=== PATIENT | female | born 1950 | race Caucasian/White ===

== ENCOUNTER → 2018-12-06 09:07 | Outpatient (CLI) | payer MEDICARE, OTHER, SELFPAY ==
--- NOTE | 2018-12-06 | DI.MRI.S_ITS ---
PROCEDURE: MR KNEE RT WO CON INDICATIONS: BILATERAL KNEE OSTEOARTHRITIS TECHNIQUE: Noncontrast sagittal PD fast spin echo and T2 fast spin echo with fat saturation, sagittal 3-D FLASH with fat saturation; coronal T1 spin echo and PD fast spin echo with fat saturation, and axial PD fast spin echo with fat saturation through the knee. COMPARISON: [facility] [place], CR, XR KNEE ARTHRITIC SERIES BI, 11/15/2018, 14:23. FINDINGS: Image quality: Degraded by body habitus and motion artifact. Menisci: There is medial extrusion of the medial meniscus, which demonstrates amorphous high signal intensity within the anterior horn, body, and posterior horn, demonstrating superior and inferior articular surface extension. Lateral meniscus demonstrates no definite tear. Cruciate ligaments: The anterior and posterior cruciate ligaments appear intact. Medial structures: The medial collateral ligament appears intact. Visualized portions of the pes anserinus tendons appear normal. No abnormal bursal fluid. Lateral structures: The lateral collateral ligament, long and short heads of the biceps femoris tendon appear intact. The popliteus tendon appears normal. Iliotibial band appears normal. Anterior structures: The quadriceps and patellar tendons appear intact. Patellar alignment is normal. No femoral trochlear dysplasia or ventral trochlear prominence. No edema in the infrapatellar fat pad. Bones and cartilage: No bone marrow contusions or fractures. Mild diffuse subchondral degenerative marrow edema within the weightbearing aspect of the medial femoral condyle and medial tibial plateau. Severe tricompartmental periarticular osteophyte formation with hook osteophytes. Severe diffuse articular cartilage loss overlies the weightbearing aspects of the medial femoral condyle and medial tibial plateau. Moderate diffuse articular cartilage loss overlies the medial and lateral patellar facets. Mild diffuse or due to cartilage loss overlies the weightbearing aspects of the lateral femoral condyle and lateral tibial plateau. Joint space: There is a small knee joint effusion and a trace Alvarez's cyst. Multiple intra-articular loose bodies are present, largest of which is at the posterior aspect of the medial compartment measuring 11 mm. 17 mm ganglion cyst at the posterior aspect of the intercondylar notch. Normal appearing synovial plicae are incidentally noted. IMPRESSION: 1. Tricompartmental osteoarthritis with associated articular cartilage loss. 2. Knee joint effusion and intra-articular loose bodies. 3. Degenerative tearing of the medial meniscus. Dictated by: Maryse Atkinson M.D. on 12/06/2018 at 14:05 Approved by: Maryse Atkinson M.D. on 12/06/2018 at 14:11
--- NOTE | 2018-12-06 | DI.MRI.S_ITS ---
PROCEDURE: MR KNEE LT WO CON INDICATIONS: BILATERAL KNEE OSTEOARTHRITIS TECHNIQUE: Noncontrast sagittal PD fast spin echo and T2 fast spin echo with fat saturation, sagittal 3-D FLASH with fat saturation; coronal T1 spin echo and PD fast spin echo with fat saturation, and axial PD fast spin echo with fat saturation through the knee. COMPARISON: [facility] [place], CR, XR KNEE ARTHRITIC SERIES BI, 11/15/2018, 14:23. FINDINGS: Image quality: Degraded by motion artifact and body habitus Menisci: Medial extrusion of the medial meniscus is present. There is probable degenerative tearing of the posterior horn medial meniscus. There is suboptimal evaluation of the medial meniscus. Lateral meniscus is suboptimally visualized as well, but grossly unremarkable as visualized. Cruciate ligaments: The anterior and posterior cruciate ligaments appear intact. Medial structures: The medial collateral ligament appears intact. Visualized portions of the pes anserinus tendons appear normal. Mild T2 signal elevation adjacent to the tibial insertion of the semimembranosus. No abnormal bursal fluid. Lateral structures: The lateral collateral ligament, long and short heads of the biceps femoris tendon appear intact. The popliteus tendon appears normal. Iliotibial band appears normal. Anterior structures: The quadriceps and patellar tendons appear intact. Patellar alignment is normal. No femoral trochlear dysplasia or ventral trochlear prominence. No edema in the infrapatellar fat pad. Bones and cartilage: No bone marrow contusions or fractures. There is severe tricompartmental periarticular osteophyte formation. There is severe diffuse articular cartilage loss overlying the weightbearing aspects of the medial femoral condyle and medial tibial plateau. Moderate to cartilage loss overlies the patellar apex and medial facet. The cartilage of the medial and lateral femorotibial compartments, as well as the patellofemoral compartment, appears normal in thickness. Joint space: There is a small knee joint effusion, a small Alvarez's cyst, and a small ganglion cyst along the popliteus. Multiple intra-articular loose bodies are present, largest of which is in the anterior central compartment measuring 11 mm.Normal appearing synovial plicae are incidentally noted. IMPRESSION: 1. Tricompartmental osteoarthritis with associated articular cartilage loss. 2. Medial meniscal tearing. 3. Knee joint effusion and Alvarez's cyst with intra-articular loose bodies. 4. Insertional tendinitis of the semimembranosus. Dictated by: Marsye Atkinson M.D. on 12/06/2018 at 13:29 Approved by: Maryse Atkinson M.D. on 12/06/2018 at 13:34
== END ==
PROVIDERS: Visit Provider Orthopaedic Surgery
DX: M17.0 Bilateral primary osteoarthritis of knee (principal); S83.242A Other tear of medial meniscus, current injury, left knee, initial encounter; M23.203 Derangement of unspecified medial meniscus due to old tear or injury, right knee; M25.462 Effusion, left knee; M25.461 Effusion, right knee; M71.22 Synovial cyst of popliteal space [Baker], left knee
CPT/HCPCS: 73721

== ENCOUNTER 2019-01-03 07:27 | Inpatient (IN) | payer MEDICARE, OTHER, SELFPAY ==
[2018-12-20 13:49] VITALS: BMI 33.8
[2019-01-03] VITALS (11 sets, daily range): BP systolic 99–160; BP diastolic 62–89; PULSE 16–86; RESP 14–20; TEMP 36.2–36.7; O2SAT 94–100; BMI 33.3
--- NOTE | 2019-01-03 07:40 | PM.PREOP ---
Pre-operative Note Interval Note History & Physical reviewed/Exam performed by Physician: Yes Changes to H&P: No
--- NOTE | 2019-01-03 08:04 | PM.OP.1 ---
Operative Date/Time/Diagnoses Date of procedure: 01/03/19 Time of procedure: 13:00 Pre-op diagnosis: Bilateral knee osteoarthritis Post-op diagnosis: same Procedure & Clinicians Procedure: Bilateral total knee arthroplasty Same procedure as scheduled: Yes Indications: The patient presents today for total knee arthroplasty after failure of conservative treatment. The nature of the procedure including the risks and benefits, alternatives, postoperative course and expected outcome were discussed and all questions answered. Consent was obtained. Operative site confirmed and marked. Surgeon: aGry Trevino Garnishment Specialist: Major Hutson Anesthesia Type: General, Spinal and Local Operative Notes Findings: Osteoarthritis with severe varus deformity and moderate flexion contracture. Closure Type: primary Specimen(s): none sent Prosthetic devices, grafts, tissues, transplants, or devices: [employer] BCS: RIGHT: 5 femoral component, 4 tibial component, 10 mm BCS polyethylene tray and 32 x 7.5 mm round patella. [employer] BCS: LEFT: 5 femoral component, 4 tibial component, 11 mm BCS polyethylene tray and 32 x 7.5 mm round patella Applied: implant(s) Estimated Blood Loss (mL): 100 Blood products transfused: none Procedure in detail: The patient was taken to the operative suite and placed under general and spinal anesthesia. The patient was given prophylactic antibiotics prior to surgery. The patient was also given tranexamic acid, 1 g, just prior to surgery for postoperative hemostasis. The lateral knee was prepped and the joint injected with 20 mL of 1% Lidocaine with epinephrine. The knee was then prepped and draped in usual sterile fashion. The left leg was exsanguinated with an Esmarch dressing and the tourniquet raised to 250 torr. A 15 cm anterior incision was made. Next a medial trivector arthrotomy was made. The extensor mechanism was marked to ensure accurate repair. Initial exposing dissection was carried out medially and laterally. The knee was then extended and the patellar thickness was measured and a cut made removing approximately 7-8 mm of bone with a goal of restoring normal patellar thickness. The patella was then sized and drilled. Some excess lateral bone was excised and the patellofemoral ligament released. The tourniquet was then released. The knee was then flexed and the [employer] femoral guide was placed. The anterior pins were placed and the distal rotation holes drilled. The distal cutting guide was placed and the templated distal femoral cut was made. The templating cutting block was then placed and the anterior, posterior and chamfer cuts made. The [employer] tibial guide was placed and the alignment checked along the axis of the proximal tibial with a esteban. The proximal tibial cut was then made with an oscillating saw. All meniscus and bony debris was then removed. Flexion extension gaps were checked. No specific balancing was required other than routine exposure and removal of osteophytes. The soft tissues were then injected with a combination of 20 mL of half percent Marcaine with epinephrine and 20 mL of Exparel. The trial components were then placed. The knee went into full extension and flexion beyond 120?. There was excellent medial- lateral balance throughout motion. Patellar tracking was excellent. The trial components were removed and size is confirmed for the final implants. The knee was then exsanguinated with an Esmarch dressing and the tourniquet reapplied for cementing. The knee was cleansed with Pulsavac irrigation and dried. The final components were cemented in with high viscosity vacuum mixed bone cement with antibiotics. The knee was held in extension and the patellar clamp until the cement had adequately cured. The knee was then irrigated with dilute Betadine solution. The extensor mechanism was closed with 5 interrupted #1 Vicryl sutures in 90 degrees of flexion. The joint was then injected with a combination of 1 g of tranexamic acid and 20 mL of quarter percent Marcaine with epinephrine. The subcutaneous tissue was closed with 2-0 Vicryl. The skin was closed with yousif and surgical adhesive. An Aquacel dressing and Choco wrap were then applied. The identical procedure was then carried out on the right side. Overall balancing and patellar tracking was virtually identical except a 10 mm polyethylene spacer was utilized and very mild release of the MCL with an 18 gauge needle was utilized. Tourniquet time was 28 minutes on the left side and 35 minutes on the right side. Complications: none Condition: stable Disposition: PACU Plan for aftercare: [facility] protocol for total knee arthroplasty.
[2019-01-03] MEDS: CELECOXIB 200 MG CAPSULE PO (08:14)
[2019-01-03] MEDS: ACETAMINOPHEN 325 MG TABLET 975 MG PO ×2 (08:14→17:33)
[2019-01-03] MEDS: LACTATED RINGERS 1,000 ML 42 ML IV ×2 (08:15→12:40)
[2019-01-03] MEDS: PREGABALIN 75 MG CAPSULE PO (08:15)
--- NOTE | 2019-01-03 09:30 | DI.RAD.S_ITS ---
PROCEDURE: XR KNEE RT 1TO2V INDICATIONS: TKA TECHNIQUE: 2 view(s) of the knee acquired. COMPARISON: None. FINDINGS: Bones: Patient is status post right knee joint arthroplasty. Hardware components are in expected positions. Visualized bony structures are intact. Soft tissues: Overlying postoperative changes are noted. IMPRESSION: Normal alignment after right total knee arthroplasty. Dictated by: Mansoor Rios M.D. on 01/03/2019 at 14:53 Approved by: Mansoor Rios M.D. on 01/03/2019 at 14:53
--- NOTE | 2019-01-03 09:30 | DI.RAD.S_ITS ---
PROCEDURE: XR KNEE LT 1TO2V INDICATIONS: TKA TECHNIQUE: A 2 view(s) of the knee acquired. COMPARISON: None. FINDINGS: Bones: Patient is status post knee joint arthroplasty. Hardware components are in expected positions. Visualized bony structures are intact. Soft tissues: Overlying postoperative changes are noted. IMPRESSION: Normal alignment after left total knee arthroplasty. Dictated by: Mansoor Rios M.D. on 01/03/2019 at 14:52 Approved by: Mansoor Rios M.D. on 01/03/2019 at 14:53
[2019-01-03] MEDS: CEFAZOLIN 2 GM/100 ML FROZ.PIGGY IV ×2 (10:18→17:36)
--- NOTE | 2019-01-03 11:17 | SUR.OPER ---
Supine on padded OR bed. Pillow under head, arms secured on padded armboards <90 degree abduction. Safety belt across torso. Non-operative leg secured with tape over blanket over lower leg. Operative leg secured in Dante positioner. Foam padded brace at thigh of operative leg.
[2019-01-03] MEDS: BUPIVACAINE LIPOSOME 266 MG/20 ML VIAL 532 MG INJ (11:40)
[2019-01-03] MEDS: BUPIVACAINE 0.25% W/ EPI (PF) 20 ML, TRANEXAMIC ACID 1,000 MG, SODIUM CHLORIDE 0.9% 10 ML INJ ×2 (12:17→12:18)
[2019-01-03] MEDS: POVIDONE-IODINE 15 ML, SODIUM CHLORIDE 0.9% 250 ML TOP (12:19)
[2019-01-03] MEDS: BUPIVACAINE 0.25% W/ EPI 30 ML VIAL 120 ML INJ (12:20)
[2019-01-03] MEDS: LIDOCAINE 1% W/EPI INJ 40 ML INJ (12:20)
[2019-01-03] MEDS: fentaNYL 100 MCG/2 ML INJ 50 MCG IV ×2 (13:27→13:43)
[2019-01-03] MEDS: LACTATED RINGERS 1,000 ML 125 ML IV ×2 (14:30→21:15)
--- NOTE | 2019-01-03 15:04 | PC.NURSE ---
Day Shift- Report rec'd from ALEJANDRA Canales in PACU at 1355. Pt arrived to unit room 219 at 1405 via bed. Oriented to call light, bed alarm use. O2 sat 96% on RA, pt slightly drowsy, able to hold a conversation. Bilateral knee aquacell dressings CDI with juve wrap in place and ice pack. MIXING PAN TENDER+, PPP, feet warm to touch. Pt's Varinder arrived at bedside.
--- NOTE | 2019-01-03 15:35 | PT.IIE ---
Current Diagnoses Bilateral primary osteoarthritis of knee (01/03/19) Surgery Performed Operation Date: 01/03/19 09:30 Actual Procedures p Total Knee Arthroplasty(Bilateral) - Gary Trevino MD Surgical History (Last Updated 12/20/18 @ 14:13 by Henrietta Peguero, RN) No history of previous surgery (Acute) Medical History (Last Updated 12/20/18 @ 14:13 by Henrietta Peguero RN) ADD (attention deficit disorder) (Acute) Anxiety (Acute) Bunion, right foot (Acute) Deaf (Acute ~1982) HLD (hyperlipidemia) (Acute) Osteoarthritis (Acute) Septicemia (Acute ~1982) Physical Therapy Inpatient Evaluation/Re-Eval M1 PT/OT-IP Prior Functional Status Start: 01/03/19 16:15 Freq: NEEDED Status: Active Protocol: Document 01/03/19 15:35 AB (Rec: 01/03/19 16:33 AB [id number]) Medical Review Prior Functional Status Medical History Reviewed Yes Communication able to make needs known Mobility and Gait stated that she is independent with all mobilities and ambulation without AD Social History Household Members spouse Living Arrangements House Number of Floors (Floors) 3 or More Floors Number of Stairs To Enter/Railing? pt lives in a split level house but will be staying on the main level has 5 steps with L rail ascending to enter Home Environment Standard Height Toilet Walk in Shower Built-In Shower Seat Home Equipment Front Wheel Walker Straight Cane Raised Toilet Seat Without Armrests Hand Held Shower Grab Bars In Shower Employment Status Retired M2 PT-IP Current Condition Start: 01/03/19 16:15 Freq: NEEDED Status: Active Protocol: Document 01/03/19 15:35 AB (Rec: 01/03/19 16:33 AB [id number]) Physical Therapy Current Condition Current Condition Evaluation Date 01/03/19 Treatment Diagnosis s/p bilateral TKA; difficulty in walking Onset Date 01/03/19 Weight Bearing Status Weight Bearing Status Weight Bear as Tolerated M3 PT-IP Subjective Start: 01/03/19 16:15 Freq: NEEDED Status: Active Protocol: Document 01/03/19 15:35 AB (Rec: 01/03/19 16:33 AB [id number]) Subjective Physical Therapy Visit Type Type Initial Evaluation Visit Start Time 15:35 Visit Stop Time 16:12 Total Visit Minutes 37 Number of C.O.D. AUDIT CLERK Visits 0 Physical Therapy Visit Comments Patient Comments c/o nausea but agreed to get up Therapy Pain Assessment Pain When Pain Assessed At Rest Pain Present Pain Present Pain Reported Location Right Knee Intensity 2 Scale Used Numeric (1 - 10) Pain Management Techniques Apply Cold Re-positioning Timing of Activity with Medications Left Knee Intensity 1 Scale Used Numeric (1 - 10) Pain Management Techniques Apply Cold Re-positioning Timing of Activity with Medications M4 PT-IP Mobility and Gait Start: 01/03/19 16:15 Freq: NEEDED Status: Active Protocol: Document 01/03/19 15:35 AB (Rec: 01/03/19 16:33 AB [id number]) PT-Bed Mobility Assessment Supine to Sit Supine to Sit Standby Assistance Sit to Supine Sit to Supine Total Assistance PT-Transfer Assessment Sit to and From Stand Sit to and from Stand Maximum Assistance 1 Person Assistance Use of Upper Extremities Comments Mobility Comments supine BP: 129/89 pt completed supine to sit SBA. BP sittin/87 . attempted sit to stand but pt unable. attempted again and completed with max A and max cues. pt was able to stand max A for ~ 7 sec and became unresponsive and has to be assisted to sit down and lay back in bed requiring total A. alerted the nurse. BP in supine: 99/80. nurse checked pt. positioned pt in bed. call light and table placed within reach. PT-Balance Assessment Sitting Balance and Reactions Static Sitting Balance Ability Good Dynamic Sitting Balance Ability Good Standing Balance and Reactions Static Standing Balance Ability Poor Dynamic Standing Balance Ability Poor Device Used FWW M5 PT-IP Objective Assessments Start: 01/03/19 16:15 Freq: NEEDED Status: Active Protocol: Document 01/03/19 15:35 AB (Rec: 01/03/19 16:33 AB [id number]) Orientation Orientation/Cognition Level of Alertness Alert Orientation Name Place Situation Language Function Ability No Deficits Noted Safety Awareness Understands Safety Issues Memory Description Short Term Impaired Gross Range of Motion Lower Extremity ROM Assessment Bilaterally Impaired Impairments R knee flexion: ~ 70 deg L knee flexion: ~ 90 deg Strength Lower Extremity Strength Assessment Bilaterally Impaired Knee 3+/5 Coordination Assessment Gross Coordination Gross Coordination WNL Sensation Assessment Sensation Gross Sensation Right LE Impaired Left LE Impaired Light Touch Impaired Proprioception (Position) Impaired Comments Sensation Comments decrease sensation on BLE Muscle Tone Muscle Tone WNL Yes M6 PT-IP Treatment Start: 01/03/19 16:15 Freq: NEEDED Status: Active Protocol: Document 01/03/19 15:35 AB (Rec: 01/03/19 16:33 AB [id number]) Physical Therapy Treatment Exercises Exercises Heel Slides Education Education Provided Precautions Weight Bearing Status Post-Op Packet Safety M7 PT-IP Assessment and Plan Start: 01/03/19 16:15 Freq: NEEDED Status: Active Protocol: Document 01/03/19 15:35 AB (Rec: 01/03/19 16:33 AB [id number]) PT Summary Assessment and Plan Potential Rehabilitation Potential Fair Status of Condition at Evaluation Evolving Summary Impairments Pain ROM Strength Balance Coordination Sensation Bed Mobility Transfers Gait Activity Tolerance Assessment Summary pt requiring max A with sit to stand and unable to tolerate much activity at this time. will require further assessment to determine d/c plan. Goals Bed Mobility Goal Standby Assistance Transfer Goal Standby Assistance Front Wheeled Walker Gait Goal Standby Assistance Front Wheel Walker Gait Distance 150 Other Goals up/down 5 steps using L rail ascending SBA Days to Meet Goals 5 Frequency of Treatment Frequency Of Treatment Twice a Day Treatment Plan Physical Therapy Treatment Plan Bed Mobility Training Transfer Training Gait Training Therapeutic Exercise Balance Retraining Post Op Education Discharge Planning Hot or Cold Pack Neuromuscular Re-ed Coordination Retraining Manual Therapy Other Recommendations and Next Treatment transfers, ambulation Focus Recommendations To Nursing Amount of Assist Needed PT/OT Assist Only Discharge Recommendations PT Discharge Recommendations Home with 04/04 Assist SNF Rehab Other Discharge Recommendations SNF vs home : depending on progress
[2019-01-03] MEDS: ONDANSETRON 4 MG/2 ML INJ IV (15:52)
[2019-01-03] MEDS: OXYCODONE IR 5 MG TABLET PO ×2 (18:16→21:15)
[2019-01-03] MEDS: ASPIRIN EC 81 MG TABLET PO (21:15)
[2019-01-04] VITALS (11 sets, daily range): BP systolic 77–153; BP diastolic 27–85; PULSE 79–121; RESP 12–20; TEMP 36.3–37.1; O2SAT 94–98
[2019-01-04] MEDS: OXYCODONE IR 5 MG TABLET PO ×5 (00:14→21:17)
[2019-01-04] MEDS: ACETAMINOPHEN 325 MG TABLET 975 MG PO ×4 (00:14→21:21)
[2019-01-04] MEDS: CEFAZOLIN 2 GM/100 ML FROZ.PIGGY IV (02:20)
[2019-01-04 05:57] LABS: Hematocrit 32.3 % (36-46); Hemoglobin 11.6 g/dL (12.0-16.0)
[2019-01-04] MEDS: MELOXICAM 7.5 MG TABLET 15 MG PO (08:11)
[2019-01-04] MEDS: ASPIRIN EC 81 MG TABLET PO ×2 (08:13→21:22)
--- NOTE | 2019-01-04 08:46 | CM.DANOTE ---
Discharge Planning/Care Management DCP: assessment: case received, EMR reviewed, discussed with ortho PA Soniya Lynn and met with pt. Introduced self and role. Pt is a 68 year old female who admitted yesterday for planned Bilateral TKAs. Payer: Medicare and [facility] Surgeon: Dr. Trevino INPT admission status: Confirmed yesterday by UR RN Gary. PCP: pt does not have one. States her PCP retired some time ago and I am heathy and never got around to getting another one. I have been concentrating on issues related to my knee pain with the orthopedic team. Pt identifies her plan as home with her Varinder's support. He is taking 2 weeks off work and she says she has a community of friends and neighbors in [place] who have offered prn assist. She is aware of snf rehab option but says she is confident that she will do well at home. PT is seeing pt. OT order is now obtained to help pt with her goal of successful d/c to home environment. P: follow....pt plans for home when stable for home environment: outpt PT CM Discharge Assessment Start: 01/04/19 08:44 Freq: Status: Active Protocol: Document 01/04/19 08:44 ITV (Rec: 01/04/19 08:46 ITV [id number]) Discharge Planning Assessment Advance Directives? Yes Advance Directives on File Yes History Provided By Patient Medical Record Prior Living Arrangements House Household Members spouse Independent with ADL's Yes: limited by knee pain Is patient alert and oriented? Yes Discharge Plan Home Whiteboard Updated in Patient Room with Yes name and ext. 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 Status In Process Next Review Type Continued Stay Review Pre-Anesthesia Assessment Start: 12/20/18 13:49 Freq: Status: Complete Protocol: Document 12/20/18 13:49 CAB (Rec: 12/20/18 14:21 CAB [id number]) Pre-Anesthesia Assessment Patient Information Reviewed Via Phone Assessment Assessment Completed With Patient Diagnostic Results CBC EKG Electrolytes Comment Outside labs/ECG 11/24/18 scanned to record Primary Care Provider N/A Seen Specialist in Last 12 Months Yes Specialist Seen Orthopedist Primary Language Telugu Pool Table Operator Required No Height 160.02 cm Weight 86.636 kg Body Mass Index (BMI) 33.8 Hearing Ability Hard of Hearing Visual Assist Glasses Dentition Type Teeth, Natural Present Barriers to Learning None Comment Deaf in left ear Hx Anesthesia Reactions No: No prior surgical history Hx Family Anesthesia Reaction Yes: Father always took a long time to wake up Hx Malignant Hyperthermia No Hx Blood Transfusions No Anesthesia Review Requested No 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 No Does patient have ARGUELLES/SOB No Hx Sleep Apnea No Currently Taking a Beta Diaz No Can You Climb a Flight of Stairs Without Yes SOB Hx Chest Pain No Hx SOB No Hx Syncope or Dizziness No Anti-Coagulant Therapy No Has a Lacrosse Player No Cardiac Testing No Hx Pacemaker/ICD No Pacemaker Rep Required? No Cardiac Clearance Received Not Applicable Diet Type At Home Regular dysphagia No Bladder Pattern Nocturia Urinary Catheter Present No Hx Urinary Self Catheterization No Diabetes No Patient No Lactating No Hx Drug Resistant Organism No Presence of External or Internal Medical No Devices Have you traveled outside the [facility] in the last 30 days? Marital Status Lives With spouse Prior Living Arrangements House Number of Floors (Floors) Two Floors Support System Spouse Patient Discharge Plan Description Return Home Comment Pt advised 2-3 day length of stay per surgeon's office Feels Safe in Current Environment Yes Been Physically Hurt or Threatened By a No Person in Current Environment Do you have thoughts of harming yourself None or others? Are you currently considering suicide? No Do you have a plan to hurt yourself or No Plan others? Do You Have Any Spiritual Beliefs That No May Affect Your HC Choices? Do You Have Any Cultural Practices That No May Affect Your HC Choices? Spiritual Referral In-House [place] Comment Yarsanism Who Can We Speak to About Patient's Care Family, friends Identifying Code for Release of Patient Declines to issue Information Health Care Proxy/Next of Kin Varinder () Health Care Proxy Emergency Contact Name Varinder () Emergency Contact Advance Directives? Yes: Pt feels it's within the will Requested Patient Bring Advanced Yes Directives DOS Power of Beam Sealer No PAC Instructions Do not shave/clip surgical site Durable medical equipment Medications to take/avoid Nasal antibiotic No ETOH/petroleum product on skin DOS NPO Post-op transportation Pre-op antibiotic Sturdy shoes/comfortable clothes Do not bring valuables and remove jewelry
--- NOTE | 2019-01-04 10:55 | PT.IPTN ---
Current Diagnoses Bilateral primary osteoarthritis of knee (01/03/19) Surgery Performed Operation Date: 01/03/19 09:30 Actual Procedures p Total Knee Arthroplasty(Bilateral) - Gary Trevino MD Physical Therapy Treatment Note M2 PT-IP Current Condition Start: 01/03/19 16:15 Freq: NEEDED Status: Active Protocol: Document 01/03/19 15:35 AB (Rec: 01/03/19 16:33 AB [id number]) Physical Therapy Current Condition Current Condition Evaluation Date 01/03/19 Treatment Diagnosis s/p bilateral TKA; difficulty in walking Onset Date 01/03/19 Weight Bearing Status Weight Bearing Status Weight Bear as Tolerated M3 PT-IP Subjective Start: 01/03/19 16:15 Freq: NEEDED Status: Active Protocol: Document 01/04/19 10:55 AB (Rec: 01/04/19 12:24 AB [id number]) Subjective Physical Therapy Visit Type Type Treatment Note Visit Start Time 10:55 Visit Stop Time 11:45 Total Visit Minutes 50 Number of PLANT ASSOCIATE Visits 0 Physical Therapy Visit Comments Patient Comments pt agreeable to do PT Therapy Pain Assessment Pain When Pain Assessed At Rest Pain Present Pain Present Pain Reported Location Right Knee Intensity 6 Scale Used Numeric (1 - 10) Pain Behaviors Guarding Wincing Pain Management Techniques Apply Cold Re-positioning Timing of Activity with Medications Left Knee Intensity 3 Scale Used Numeric (1 - 10) Pain Behaviors Guarding Pain Management Techniques Apply Cold Re-positioning Timing of Activity with Medications M4 PT-IP Mobility and Gait Start: 01/03/19 16:15 Freq: NEEDED Status: Active Protocol: Document 01/04/19 10:55 AB (Rec: 01/04/19 12:24 AB [id number]) PT-Bed Mobility Assessment Supine to Sit Supine to Sit Standby Assistance Sit to Supine Sit to Supine Maximum Assistance 2 Person Assistance PT-Transfer Assessment Sit to and From Stand Sit to and from Stand Maximum Assistance 1 Person Assistance Use of Upper Extremities Equipment Transfer Assistive Device Gait Belt Front Wheeled Walker Orthotic/Prosthetic Devices or Brace: No Transfers Transfer Destination Bed Bedside Commode Transfer Technique Stand Pivot Transfer Ability Level of Assist Maximum Assistance 1 Person Assistance 2 Person Assistance Use of Upper Extremities Comments Mobility Comments BP in supine: 149/88 O2 sat 99 CA 96. pt completed supine to sit SBA. Pt was able to sit on EOB SBA. pt with c/o lightheadedness. checked BP in sittin/81 CA 98. pt requested to use the toilet. PT asked nurse to assist. Pt completed sit to stand max A and max cues and completed stand step transfer bed to bedside commode using FWW max A and max cues for quad activation. pt c/o continued lightheadedness and with fuzzy blackish vision. BP checked: 84/44 CA 108 O2 sat 96%. assisted pt back in bed. stand pivot transfer with pt holding on to PT in front and nurse behind to assist with standing and stand pivot transfer to bed. pt required max A x 2 for sit to supine. positioned pt in bed. BP: 136 /72 pr 97 O2 sat 93%. Gait Assessment Comments Gait Comments unable at this time M5 PT-IP Objective Assessments Start: 01/03/19 16:15 Freq: NEEDED Status: Active Protocol: Document 01/03/19 15:35 AB (Rec: 01/03/19 16:33 AB [id number]) Orientation Orientation/Cognition Level of Alertness Alert Orientation Name Place Situation Language Function Ability No Deficits Noted Safety Awareness Understands Safety Issues Memory Description Short Term Impaired Gross Range of Motion Lower Extremity ROM Assessment Bilaterally Impaired Impairments R knee flexion: ~ 70 deg L knee flexion: ~ 90 deg Strength Lower Extremity Strength Assessment Bilaterally Impaired Knee 3+/5 Coordination Assessment Gross Coordination Gross Coordination WNL Sensation Assessment Sensation Gross Sensation Right LE Impaired Left LE Impaired Light Touch Impaired Proprioception (Position) Impaired Comments Sensation Comments decrease sensation on BLE Muscle Tone Muscle Tone WNL Yes M6 PT-IP Treatment Start: 01/03/19 16:15 Freq: NEEDED Status: Active Protocol: Document 01/04/19 10:55 AB (Rec: 01/04/19 12:24 AB [id number]) Physical Therapy Treatment Education Education Provided Precautions Weight Bearing Status Post-Op Packet Safety M7 PT-IP Assessment and Plan Start: 01/03/19 16:15 Freq: NEEDED Status: Active Protocol: Document 01/04/19 10:55 AB (Rec: 01/04/19 12:24 AB [id number]) PT Summary Assessment and Plan Potential Rehabilitation Potential Fair Summary Impairments Pain ROM Strength Balance Coordination Sensation Bed Mobility Transfers Gait Activity Tolerance Progress Towards Goals Slow Progress due to Medical Issues Slow Progress due to Activity Tolerance Assessment Summary pt with decrease BP during upright activity affecting mobility. pt unable to tolerate much activity this morning and unable to ambulate at this time. pt may require SNF rehab prior to d/c home. Goals Bed Mobility Goal Standby Assistance Transfer Goal Standby Assistance Front Wheeled Walker Gait Goal Standby Assistance Front Wheel Walker Gait Distance 150 Other Goals up/down 5 steps using L rail ascending SBA Days to Meet Goals 5 Frequency of Treatment Frequency Of Treatment Twice a Day Treatment Plan Physical Therapy Treatment Plan Bed Mobility Training Transfer Training Gait Training Therapeutic Exercise Balance Retraining Post Op Education Discharge Planning Hot or Cold Pack Neuromuscular Re-ed Coordination Retraining Manual Therapy Other Recommendations and Next Treatment transfers, ambulation Focus Recommendations To Nursing Amount of Assist Needed 2 Person Assist Discharge Recommendations PT Discharge Recommendations Home with 04/04 Assist SNF Rehab Other Discharge Recommendations SNF vs home : depending on progress
--- NOTE | 2019-01-04 12:27 | PC.NURSE ---
Addendum entered by Anu Garcia R.N. 01/04/19 15:25: Upon 2nd PT session, Pt sat at side of bed, BP decreased to 77/27 pulse 121, pt light-headed, sweaty. Pt assisted back into lying position by PT, rechecked BP for 120/78 pulse 101. Pt's bed placed into chair position per request by PT and BP rechecked again for 134/77 pulse 96, BLE supported with pillows, ice packs on/off throughout day and Bilateral SCD's on throughout shift. Plan to have intermittent times of pt bring placed in bed chair position, evening RN aware. Original Note: Day Shift- T 1115, PT asked for another assist, this development writer helped pt from bed to BSC. Once pt sat on BSC, pt stated feeling light-headed and like a black aura, O2 sat 96% on RA, Pulse rate 111, BP while sitting was 84/44. Pt pivot transferred back to bed with max PT assist. Lying supine, Pulse 84, O2 satt 95% on RA and BP 136/72. Pt stated she has not been eating much. Enc frequent small meals and drinking water. High fall risk precautions in place, bed alarm on. Pt A&OX4, follows direction, able to make needs known using call light.
--- NOTE | 2019-01-04 14:40 | PT.IPTN ---
Current Diagnoses Bilateral primary osteoarthritis of knee (01/03/19) Surgery Performed Operation Date: 01/03/19 09:30 Actual Procedures p Total Knee Arthroplasty(Bilateral) - Gary Trevino MD Physical Therapy Treatment Note M2 PT-IP Current Condition Start: 01/03/19 16:15 Freq: NEEDED Status: Active Protocol: Document 01/03/19 15:35 AB (Rec: 01/03/19 16:33 AB [id number]) Physical Therapy Current Condition Current Condition Evaluation Date 01/03/19 Treatment Diagnosis s/p bilateral TKA; difficulty in walking Onset Date 01/03/19 Weight Bearing Status Weight Bearing Status Weight Bear as Tolerated M3 PT-IP Subjective Start: 01/03/19 16:15 Freq: NEEDED Status: Active Protocol: Document 01/04/19 14:40 AB (Rec: 01/04/19 16:46 AB [id number]) Subjective Physical Therapy Visit Type Type Treatment Note Visit Start Time 14:40 Visit Stop Time 15:03 Total Visit Minutes 23 Number of PRODUCTION ZONE LEADER Visits 0 Physical Therapy Visit Comments Patient Comments pt agreeable to do PT Therapy Pain Assessment Pain When Pain Assessed At Rest Pain Present Pain Present Pain Reported Location Right Knee Intensity 7 Pain Management Techniques Apply Cold Re-positioning Timing of Activity with Medications Left Knee Intensity 2 Scale Used Numeric (1 - 10) Pain Management Techniques Apply Cold Re-positioning Timing of Activity with Medications M4 PT-IP Mobility and Gait Start: 01/03/19 16:15 Freq: NEEDED Status: Active Protocol: Document 01/04/19 14:40 AB (Rec: 01/04/19 16:46 AB [id number]) PT-Bed Mobility Assessment Supine to Sit Supine to Sit Standby Assistance Sit to Supine Sit to Supine Maximum Assistance 2 Person Assistance PT-Transfer Assessment Sit to and From Stand Sit to and from Stand Moderate Assistance 1 Person Assistance Use of Upper Extremities Comments Mobility Comments supine BP: 153/73 PA 86 O2 sat 96. pt completed supine to sit SBA. no c/o dizziness/ lightheadness. BP sitting on EOB: 148/91. pt completed sit to stand mod A and cues. was able to tolerate ~ 10 sec. c /o dizziness and slight black vision. BP in standin/27 PA 121. assisted pt to sit down and then sit to supine max A x 2. positioned pt in bed. Nurse in room. BP in supine: 120/78 PA 101. positioned pt in bed. encouraged pt to be upright and elevated bed in chair like position. BP checked: 134/77 PA 97 M5 PT-IP Objective Assessments Start: 01/03/19 16:15 Freq: NEEDED Status: Active Protocol: Document 01/03/19 15:35 AB (Rec: 01/03/19 16:33 AB [id number]) Orientation Orientation/Cognition Level of Alertness Alert Orientation Name Place Situation Language Function Ability No Deficits Noted Safety Awareness Understands Safety Issues Memory Description Short Term Impaired Gross Range of Motion Lower Extremity ROM Assessment Bilaterally Impaired Impairments R knee flexion: ~ 70 deg L knee flexion: ~ 90 deg Strength Lower Extremity Strength Assessment Bilaterally Impaired Knee 3+/5 Coordination Assessment Gross Coordination Gross Coordination WNL Sensation Assessment Sensation Gross Sensation Right LE Impaired Left LE Impaired Light Touch Impaired Proprioception (Position) Impaired Comments Sensation Comments decrease sensation on BLE Muscle Tone Muscle Tone WNL Yes M6 PT-IP Treatment Start: 01/03/19 16:15 Freq: NEEDED Status: Active Protocol: Document 01/04/19 14:40 AB (Rec: 01/04/19 16:46 AB [id number]) Physical Therapy Treatment Education Education Provided Safety M7 PT-IP Assessment and Plan Start: 01/03/19 16:15 Freq: NEEDED Status: Active Protocol: Document 01/04/19 14:40 AB (Rec: 01/04/19 16:46 AB [id number]) PT Summary Assessment and Plan Potential Rehabilitation Potential Fair Summary Impairments Pain ROM Strength Balance Coordination Sensation Bed Mobility Transfers Gait Activity Tolerance Progress Towards Goals Slow Progress due to Medical Issues Assessment Summary pt continues to have decreas BP in upright activities limiting mobility therefore, unable to ambulate at this time. at this time, pt will require SNF rehab. d/c plan still depending on progress and if BP is stable for pt to be able to tolerate standing and ambulation. will continue to assess. Goals Bed Mobility Goal Standby Assistance Transfer Goal Standby Assistance Front Wheeled Walker Gait Goal Standby Assistance Front Wheel Walker Gait Distance 150 Other Goals up/down 5 steps using L rail ascending SBA Days to Meet Goals 5 Frequency of Treatment Frequency Of Treatment Twice a Day Treatment Plan Physical Therapy Treatment Plan Bed Mobility Training Transfer Training Gait Training Therapeutic Exercise Balance Retraining Post Op Education Discharge Planning Hot or Cold Pack Neuromuscular Re-ed Coordination Retraining Manual Therapy Other Recommendations and Next Treatment transfers, ambulation Focus Recommendations To Nursing Amount of Assist Needed 2 Person Assist Discharge Recommendations PT Discharge Recommendations SNF Rehab Other Discharge Recommendations SNF vs home : depending on progress
--- NOTE | 2019-01-04 16:25 | OT.IP.EVAL ---
Current Diagnoses Bilateral primary osteoarthritis of knee (01/03/19) Surgery Performed Operation Date: 01/03/19 09:30 Actual Procedures p Total Knee Arthroplasty(Bilateral) - Gary Trevino MD Past Medical History (Last Updated 12/20/18 @ 14:13 by Henrietta Peguero RN) ADD (attention deficit disorder) (Acute) Anxiety (Acute) Bunion, right foot (Acute) Deaf (Acute ~1982) HLD (hyperlipidemia) (Acute) Osteoarthritis (Acute) Septicemia (Acute ~1982) Surgical History (Last Updated 12/20/18 @ 14:13 by Henrietta Peguero RN) No history of previous surgery (Acute) Occupational Therapy Inpatient Evaluation/Re-Eval M1 PT/OT-IP Prior Functional Status Start: 01/03/19 16:15 Freq: NEEDED Status: Active Protocol: Document 01/04/19 16:25 PJM (Rec: 01/04/19 17:49 PJM [id number]) Medical Review Prior Functional Status Medical History Reviewed Yes Diet/Fluid Consistency Regular Communication WNL Mobility and Gait Pt stated that she is independent with all mobilities and ambulation without AD. Activities of Daily Living and IADL's Pt stated she is independent with all self care, IADLS, driving. Prior Functional Level (Other details) Pt rides her horse 3-4x week in a ring. She uses step to mount, dismount. Social History Household Members spouse Living Arrangements House Number of Floors (Floors) 3 or More Floors Number of Stairs To Enter/Railing? 5 with L rail to enter main level with all necessities Home Environment Standard Height Toilet Walk in Shower Built-In Shower Seat Home Equipment Front Wheel Walker Straight Cane Hand Held Shower Grab Bars In Shower Employment Status Retired Additional Social History Comment Pt has RTS but it is too high and her feet don't touch floor . She plans to borrow BS for use over toilet. Note pt's travels for work. He plans to take 2-3 weeks off to assist pt PRN. M2 OT-IP Current Condition Start: 01/04/19 17:29 Freq: Status: Active Protocol: Document 01/04/19 16:25 PJM (Rec: 01/04/19 17:49 PJM [id number]) Occupational Therapy Current Condition Current Condition Evaluation Date 01/04/19 Treatment Diagnosis decreased mobility, self care S/P B TKA Post Operative Precautions Other Precautions fall risk, orthostatic with P. T. Weight Bearing Status Weight Bearing Status Weight Bear as Tolerated M3 OT- IP Subjective and Pain Start: 01/04/19 17:29 Freq: Status: Active Protocol: Document 01/04/19 16:25 PJM (Rec: 01/04/19 17:49 PJ [id number]) OT- Subjective Occupational Therapy Visit Type Type Initial Evaluation Visit Start Time 15:41 Visit Stop Time 16:25 Total Visit Minutes 44 Occupational Therapy Visit Comments Patient Comments This is harder than I thought it would be. Patient/Caregiver Goals to be able to ride her horse and hike OT Pain Assessment Pain When Pain Assessed After Treatment Pain Present Pain Present Pain Reported Location Right Knee Intensity 6 Scale Used Numeric (1 - 10) Description Aching Acute Management Techniques Apply Cold Timing of Activity with Medications Left Knee Intensity 2 Scale Used Numeric (1 - 10) Description Aching Acute Management Techniques Apply Cold Timing of Activity with Medications M4 OT- IP ADL's Start: 01/04/19 17:29 Freq: Status: Active Protocol: Document 01/04/19 16:25 PJM (Rec: 01/04/19 17:49 PJ [id number]) OT MOR-Gnfo-Jojwnea General Evaluation Self-Feeding Ability Independent OT ADL-Grooming General Evaluation Grooming Ability Standby Assistance Areas Needing Assistance Retrieving/Set-up of Grooming Items Combing/Brushing Hair Face Washing Comments OT Grooming Comments after set up in bed OT ADL-Oral Care General Eval Oral Care Ability Standby Assistance Areas of Assistance Brushing Teeth Retrieving/Set-Up of Items Comments Oral Care Comments after set up in bed OT ADL-Dressing General Eval Upper Body Dressing Ability Standby Assistance Lower Body Dressing Ability Total Assistance Assistive Devices Dressing Assistive Devices Long Handled Shoe [place] Survey Technician Sock Aid Comments OT Dressing Comments Pt not tolerating OOB activity at present due to orthostatic hypotension; provided education re: use of city constable, sock aid and long shoe horn and optimal clothing choices. Pt will need to be independent with dressing when returns to traveling for work in 2-3 weeks. Provided equipt to pt at her request. OT ADL-Toileting General Evaluation Toileting Ability Maximum Assistance Devices Toileting Assistive Devices Bedpan Comments OT Toileting Comments pt too orthostatic to use BSC at present; began education with pt/ re: bathroom safety equipment options OT ADL-Bathing Bathing Type Bathing Type Sponge Bath General Evaluation Bathing Ability Maximal Assistance Comments OT Bathing Comments began education re: bathroom safety equipment options and transfer techniques; provided long bath brush M5 OT- IP IADL's Start: 01/04/19 17:29 Freq: Status: Active Protocol: Document 01/04/19 16:25 PJM (Rec: 01/04/19 17:49 PJ [id number]) OT-Instrumental Activities of Daily Living Deficits IADL Deficits Identified Deficits Home Safety Awareness Awareness of Need for Assistance at Home Good Awareness Ability to Problem Solve Emergency Able to Problem Solve Situations Medication Management Medication Management No Deficits Identified Money Management Money Management No Deficits Identified Meal Preparation Meal Preparation Caregiver Provides Assist Meal Preparation Comments to assist until pt able Milking Machine Mechanic Milking Machine Mechanic Caregiver Provides Assist Milking Machine Mechanic Comments to assist until pt able M6 OT- IP Functional Cognition Start: 01/04/19 17:29 Freq: Status: Active Protocol: Document 01/04/19 16:25 PJM (Rec: 01/04/19 17:49 [facility] [id number]) Cognitive Factors Limiting Selfcare Function Cognitive Ability Level of Alertness Alert Patient Orientation Name Age Birthday Month Date Year Day of Week Place Situation Attention Span Ability Capable of Focused Attention Capable of Sustained Attention Ability to Follow Commands Able to Follow One Step Commands Memory Description No Deficits Noted Safety Awareness No Deficits Noted Problem Solving Ability No deficits Noted Cognitive Comments Cognitive Assessment Comments Cognition WNL; pt asking appropriate questions about adapted ADL techniques OT- Vision and Hearing OT- Hearing Assessment OT- Hearing Assessment Hearing Impaired Left Ear Impaired OT- Vision Assessment Visual Acuity Glasses All The Time Vision Assessment Comments wears bifocals; pt is deaf in L ear, no hearing aids M7 OT- IP Mobility and Balance Start: 01/04/19 17:29 Freq: Status: Active Protocol: Document 01/04/19 16:25 PJM (Rec: 01/04/19 17:49 PJ [id number]) OT-Transfer Assessment Comments Mobility Comments see P.T. notes OT- Gait Assessment Comments Gait Ability Comments pt has been unable to ambulate to due hypotension OT- Balance Assessment Comments Other Balance Tests/Deviations/Treatment see P.T. notes : M8 OT- IP Objective Assessments Start: 01/04/19 17:29 Freq: Status: Active Protocol: Document 01/04/19 16:25 PJM (Rec: 01/04/19 17:49 PJM [id number]) OT Gross Range of Motion Upper Extremity Range of Motion Assessment Within Functional Limits OT Strength Upper Extremity Strength Assessment Within Functional Limits Hand Traveling Operator Strength Hand Dominance Right OT- Coordination Assessment Comments Coordination Comments BUE WFL OT-Muscle Tone Assessment Muscle Tone WNL Yes OT Sensation Assessment Comments Summary Comments BUE WNL per pt M9 OT- IP Assessment and Plan Start: 01/04/19 17:29 Freq: Status: Active Protocol: Document 01/04/19 16:25 PJM (Rec: 01/04/19 17:49 PJM [id number]) OT Summary Assessment and Plan Potential Rehabilitation Potential Good Analytic Complexity at Evaluation Low Summary OT Impairments Pain Balance Functional Mobility Grooming Dressing Toileting Bathing Toilet Transfers Shower Transfers Progress Towards Goals Slow Progress due to Medical Issues Assessment Summary Low complexity OT assessment completed on this 68 yr old pt admitted for elective B TKA with significant persistent post op orthostatic hypotension which has limited her ability to mobilize out of bed thus far. Pt currently has significant performance deficits in activity tolerance , all functional mobility/ transfers, standing grooming, lower body dressing, bathing and toileting. Pt will benefit from OT services to address the goals below. Pt may need SNF unless significant progress made with mobility over next 1-2 days. Pt is motivated with supportive and good social support. Note travels for work, so pt needs to be completely independent by the time he returns to work in 2-3 weeks. Further d/c recommendations to follow pending progress. Goals Grooming Goal Independent Dressing Goal Independent Toileting Goal Independent Bathing Goal Standby Assistance Toilet Transfer Goal Independent Shower Transfer Goal Contact Guard Assistance Patient/Caregiver Education Goal Demonstrate Post-Op Precautions Demonstrate Energy Conservation and Pacing Caregiver Independent Assisting Patient OT-Other Goals Grooming to be done standing or sitting at sink with good safety awareness. Days to Meet Goals 5 Frequency of Treatment Frequency Of Treatment Once a Day Treatment Plan OT Treatment Plan ADL Training Functional Mobility Patient/Family Education Discharge Planning Discharge Recommendations OT Discharge Recommendations Home with 04/04 Assist Other Discharge Recommendations vs SNF pending progress here
[2019-01-04] MEDS: LACTATED RINGERS 500 ML 1000 ML IV (16:47)
[2019-01-05] VITALS: BP 92/63; PULSE 96; RESP 16; TEMP 37.1; O2SAT 96
[2019-01-05] MEDS: OXYCODONE IR 5 MG TABLET PO ×3 (03:35→12:04)
--- NOTE | 2019-01-05 03:50 | PC.NURSE ---
Percolone given for pain 02/19. Choco wraps to bilateral knees POD2. Ice bags to both knees. Used bedpan, 400 ml dark yellow,slighly cloudy UOP obtained.
[2019-01-05 04:13] VITALS: BP 133/80; PULSE 100; RESP 16; TEMP 36.8; O2SAT 94
[2019-01-05 07:30] VITALS: BP 131/78; PULSE 96; RESP 16; TEMP 36.8; O2SAT 96
[2019-01-05] MEDS: ASPIRIN EC 81 MG TABLET PO ×2 (08:26→21:28)
[2019-01-05] MEDS: MELOXICAM 7.5 MG TABLET 15 MG PO (08:26)
[2019-01-05] MEDS: ACETAMINOPHEN 325 MG TABLET 975 MG PO ×3 (08:27→21:29)
--- NOTE | 2019-01-05 09:10 | PT.IPTN ---
Current Diagnoses Bilateral primary osteoarthritis of knee (01/03/19) Surgery Performed Operation Date: 01/03/19 09:30 Actual Procedures p Total Knee Arthroplasty(Bilateral) - Gary Trevino MD Physical Therapy Treatment Note M2 PT-IP Current Condition Start: 01/03/19 16:15 Freq: NEEDED Status: Active Protocol: Document 01/03/19 15:35 AB (Rec: 01/03/19 16:33 AB [id number]) Physical Therapy Current Condition Current Condition Evaluation Date 01/03/19 Treatment Diagnosis s/p bilateral TKA; difficulty in walking Onset Date 01/03/19 Weight Bearing Status Weight Bearing Status Weight Bear as Tolerated M3 PT-IP Subjective Start: 01/03/19 16:15 Freq: NEEDED Status: Active Protocol: Document 01/05/19 09:10 AB (Rec: 01/05/19 11:37 AB [id number]) Subjective Physical Therapy Visit Type Type Treatment Note Visit Start Time 09:10 Visit Stop Time 09:53 Total Visit Minutes 43 Number of GUEST SERVICES MANAGER Visits 0 Physical Therapy Visit Comments Patient Comments pt agreeable to do PT Therapy Pain Assessment Pain When Pain Assessed At Rest Pain Present Pain Present Pain Reported Location Right Knee Intensity 6 Scale Used Numeric (1 - 10) Pain Management Techniques Apply Cold Re-positioning Timing of Activity with Medications Left Knee Intensity 2 Scale Used Numeric (1 - 10) Pain Management Techniques Apply Cold Re-positioning Timing of Activity with Medications M4 PT-IP Mobility and Gait Start: 01/03/19 16:15 Freq: NEEDED Status: Active Protocol: Document 01/05/19 09:10 AB (Rec: 01/05/19 11:37 AB [id number]) PT-Bed Mobility Assessment Rolling Type of Rolling Roll to Right Roll to Left Level of Assist Minimal Assistance Supine to Sit Supine to Sit Standby Assistance Sit to Supine Sit to Supine Moderate Assistance PT-Transfer Assessment Comments Mobility Comments BP monitored. BP in supine: 137/86 DE 111. pt completed supine to sit SBA. pt was able to sit on EOB SBA. BP: 151/85 DE 120. after ~ 1-2 min, pt c/o slight lighheadedness. BP: 95/54 DE 120. pt requesting to use the toilet. informed nurse regarding decrease in BP. nurse then came in to assist. pt c/o sweating and weakness. after 3 min of sitting on EOB . BP: 86/56. DE 127. informed pt that it will not be safe to stand and transfer. pt agreed to use the bedpan. instructed pt to lay back in bed. completed sit to supine mod A to elevate RLE up to bed . BP checked: 109/68 DE 108. overall, pt tolerated ~ 10 min of sitting on EOB. M5 PT-IP Objective Assessments Start: 01/03/19 16:15 Freq: NEEDED Status: Active Protocol: Document 01/03/19 15:35 AB (Rec: 01/03/19 16:33 AB [id number]) Orientation Orientation/Cognition Level of Alertness Alert Orientation Name Place Situation Language Function Ability No Deficits Noted Safety Awareness Understands Safety Issues Memory Description Short Term Impaired Gross Range of Motion Lower Extremity ROM Assessment Bilaterally Impaired Impairments R knee flexion: ~ 70 deg L knee flexion: ~ 90 deg Strength Lower Extremity Strength Assessment Bilaterally Impaired Knee 3+/5 Coordination Assessment Gross Coordination Gross Coordination WNL Sensation Assessment Sensation Gross Sensation Right LE Impaired Left LE Impaired Light Touch Impaired Proprioception (Position) Impaired Comments Sensation Comments decrease sensation on BLE Muscle Tone Muscle Tone WNL Yes M6 PT-IP Treatment Start: 01/03/19 16:15 Freq: NEEDED Status: Active Protocol: Document 01/04/19 14:40 AB (Rec: 01/04/19 16:46 AB [id number]) Physical Therapy Treatment Education Education Provided Safety M7 PT-IP Assessment and Plan Start: 01/03/19 16:15 Freq: NEEDED Status: Active Protocol: Document 01/05/19 09:10 AB (Rec: 01/05/19 11:37 AB [id number]) PT Summary Assessment and Plan Potential Rehabilitation Potential Fair Summary Impairments Pain ROM Strength Balance Bed Mobility Transfers Gait Activity Tolerance Progress Towards Goals Slow Progress due to Medical Issues Slow Progress due to Activity Tolerance Assessment Summary pt continues to be limited with mobility due to decrease in BP with upright activity. pt will require SNF rehab at this time. Goals Bed Mobility Goal Standby Assistance Transfer Goal Standby Assistance Front Wheeled Walker Gait Goal Standby Assistance Front Wheel Walker Gait Distance 150 Other Goals up/down 5 steps using L rail ascending SBA Days to Meet Goals 5 Frequency of Treatment Frequency Of Treatment Twice a Day Treatment Plan Physical Therapy Treatment Plan Bed Mobility Training Transfer Training Gait Training Therapeutic Exercise Balance Retraining Post Op Education Discharge Planning Hot or Cold Pack Neuromuscular Re-ed Coordination Retraining Manual Therapy Other Recommendations and Next Treatment transfers, ambulation Focus Recommendations To Nursing Amount of Assist Needed 2 Person Assist Discharge Recommendations PT Discharge Recommendations SNF Rehab
[2019-01-05] MEDS: ONDANSETRON 4 MG ODT PO (10:40)
[2019-01-05 11:10] VITALS: BP 138/79; PULSE 101; RESP 16; TEMP 36.2; O2SAT 97
--- NOTE | 2019-01-05 13:19 | PC.NURSE ---
PT REMAINS UNABLE TO STAND UP AND BARE WEIGHT DUE TO PT CHOICE AND HER CHANGES IN VITAL SIGNS ( HYPOTENSIVE) SHE OTHERWISE IS DOING WELL POST-OP, PAIN CONTROLLED ON ONE OXYCODONE Q 3-4 HOURS PRN WELL SCHEDULED TYLENOL- MEDICATED FOR NAUSEA X 1 THIS SHIFT- LUNGS REMAIN CLEAR , SALINE LOCKED AND BILAT KNEES REMAIN WRAPPED WITH MARIBEL BANDAGES OVER AQUALCELL DRESSINGS- BILAT + CMS
--- NOTE | 2019-01-05 14:31 | P.PN_ITS ---
Subjective Date Patient Seen: 01/05/19 Interval history: Patient is seen bedside status post bilateral knee replace ments postop 2. Patient is doing well, her low blood pressure from yesterday has resolved. However she has not been out of bed because of this. Her pain is well controlled at this time she denies shortness of breath chest pain nausea vomiting and calf pain. Exam Vital Signs (past 8 hours): - 01/05/19 07:30 01/05/19 11:10 Temperature 98.2 F 97.2 F L Pulse Rate 96 H 101 H Respiratory Rate 16 16 Blood Pressure 131/78 138/79 Pulse Oximetry 96 97 Oxygen Delivery Method Room Air Oxygen Flow Rate 0 Narrative Exam Narrative: Well-developed, well-nourished, no acute distress. Alert and oriented to person, place, and time. Dressing on operative knees are clean, dry, and intact with no signs of drainage. Minimal erythema and generalized swelling around the surgical sites. Neurovascularly intact in BLE with soft and compressible calves. Range of motion of bilateral ankles intact. Objective Labs Result Diagrams: 01/04/19 05:29 Assessment & Plan Post-op Postoperative Procedures Operation Date: 01/03/19 09:30 Actual Procedures Side Surgeon p Total Knee Arthroplasty Bilateral Gary Trevino MD 1. POD #2 s/p above procedure-up with PT, pain control. Dispo-pending PT eval, likely within the next day or two. Quality VTE Deep Vein Thrombosis/Pulmonary Embolism Present on Admission: No
--- NOTE | 2019-01-05 14:35 | PT.IPTN ---
Current Diagnoses Bilateral primary osteoarthritis of knee (01/03/19) Surgery Performed Operation Date: 01/03/19 09:30 Actual Procedures p Total Knee Arthroplasty(Bilateral) - Gary Trevino MD Physical Therapy Treatment Note M2 PT-IP Current Condition Start: 01/03/19 16:15 Freq: NEEDED Status: Active Protocol: Document 01/03/19 15:35 AB (Rec: 01/03/19 16:33 AB [id number]) Physical Therapy Current Condition Current Condition Evaluation Date 01/03/19 Treatment Diagnosis s/p bilateral TKA; difficulty in walking Onset Date 01/03/19 Weight Bearing Status Weight Bearing Status Weight Bear as Tolerated M3 PT-IP Subjective Start: 01/03/19 16:15 Freq: NEEDED Status: Active Protocol: Document 01/05/19 14:35 AB (Rec: 01/05/19 15:52 AB [id number]) Subjective Physical Therapy Visit Type Type Treatment Note Visit Start Time 14:35 Visit Stop Time 15:30 Total Visit Minutes 55 Number of DRYWALL HANGER FRAMER Visits 0 Physical Therapy Visit Comments Patient Comments pt agreeable to do PT Therapy Pain Assessment Pain When Pain Assessed At Rest Pain Present Pain Present Pain Reported Location Right Knee Intensity 6 Scale Used Numeric (1 - 10) Pain Management Techniques Apply Cold Re-positioning Timing of Activity with Medications Left Knee Intensity 2 Scale Used Numeric (1 - 10) Pain Management Techniques Apply Cold Re-positioning Timing of Activity with Medications M4 PT-IP Mobility and Gait Start: 01/03/19 16:15 Freq: NEEDED Status: Active Protocol: Document 01/05/19 14:35 AB (Rec: 01/05/19 15:52 AB [id number]) PT-Bed Mobility Assessment Supine to Sit Supine to Sit Standby Assistance PT-Transfer Assessment Sit to and From Stand Sit to and from Stand Minimal Assistance 1 Person Assistance Use of Upper Extremities Equipment Transfer Assistive Device Gait Belt Front Wheeled Walker Orthotic/Prosthetic Devices or Brace: No Transfers Transfer Destination Chair Transfer Technique Stand Step Pivot Transfer Ability Level of Assist Minimal Assistance Comments Mobility Comments BP monitored. BP in supine with HOB elevated: 116/75 IL 111. pt completed supine to sit SBA. BP sitting on EOB: 128/79, HR 116. pt completed sit to stand min A and cues and completed stand step pivot transfer using FWW min A and cues. BP sitting on chair after transfer: 127/81, HR 116 . pt without c/o nausea/ lightheadedness. Gait Assessment Gait Gait Assistance Required: Minimum Assistance Distance (Feet) 75 Able to Maintain Weight Bearing Status Yes During Gait Assistive Devices Assistive Device Gait Belt Front Wheeled Walker Orthotic/Prosthetic Devices or Brace: No Gait Deviations General Gait Pattern Antalgic Wide Based Gait Factors Limiting Gait Function Factors Limiting Gait Function Decreased Activity Tolerance Decreased Strength Limited Range of Motion Pain Poor Balance Comments Gait Comments BP sitting on chair prior to ambulation: 132/81, HR 111. pt ambulated in room with chair follow using FWW ~ 20 ft min A and cues. BP after ambulation sitting on chair: 116/81 IL 113 pt agreed to do another ambulation. BP checked: 117/74 IL 117. pt ambulated in the hallway ~ 100 ft min A and cues using FWW. BP after ambulation sitting on w/c: 120/69. pt transferred to chair using FWW taking ~ 5 steps using FWW min A and cues. positioned on pt chair. call light and table placed within reach. BP checked: 112/66 IL 112 M5 PT-IP Objective Assessments Start: 01/03/19 16:15 Freq: NEEDED Status: Active Protocol: Document 01/03/19 15:35 AB (Rec: 01/03/19 16:33 AB [id number]) Orientation Orientation/Cognition Level of Alertness Alert Orientation Name Place Situation Language Function Ability No Deficits Noted Safety Awareness Understands Safety Issues Memory Description Short Term Impaired Gross Range of Motion Lower Extremity ROM Assessment Bilaterally Impaired Impairments R knee flexion: ~ 70 deg L knee flexion: ~ 90 deg Strength Lower Extremity Strength Assessment Bilaterally Impaired Knee 3+/5 Coordination Assessment Gross Coordination Gross Coordination WNL Sensation Assessment Sensation Gross Sensation Right LE Impaired Left LE Impaired Light Touch Impaired Proprioception (Position) Impaired Comments Sensation Comments decrease sensation on BLE Muscle Tone Muscle Tone WNL Yes M6 PT-IP Treatment Start: 01/03/19 16:15 Freq: NEEDED Status: Active Protocol: Document 01/04/19 14:40 AB (Rec: 01/04/19 16:46 AB [id number]) Physical Therapy Treatment Education Education Provided Safety M7 PT-IP Assessment and Plan Start: 01/03/19 16:15 Freq: NEEDED Status: Active Protocol: Document 01/05/19 14:35 AB (Rec: 01/05/19 15:52 AB [id number]) PT Summary Assessment and Plan Potential Rehabilitation Potential Good Summary Impairments Pain ROM Strength Balance Coordination Sensation Bed Mobility Transfers Gait Activity Tolerance Progress Towards Goals Slow Progress due to Medical Issues Assessment Summary pt progressing with mobility requiring min A with ambulation. d/c plan depending on progress. caregiver training and stair training will be conducted prior to d/c. Goals Bed Mobility Goal Standby Assistance Transfer Goal Standby Assistance Front Wheeled Walker Gait Goal Standby Assistance Front Wheel Walker Gait Distance 150 Other Goals up/down 5 steps using L rail ascending SBA Days to Meet Goals 5 Frequency of Treatment Frequency Of Treatment Twice a Day Treatment Plan Physical Therapy Treatment Plan Bed Mobility Training Transfer Training Gait Training Therapeutic Exercise Balance Retraining Post Op Education Discharge Planning Hot or Cold Pack Neuromuscular Re-ed Coordination Retraining Manual Therapy Other Recommendations and Next Treatment ambulation, caregiver training Focus , stair climbing training Recommendations To Nursing Amount of Assist Needed 1 Person Assist Discharge Recommendations PT Discharge Recommendations Home with 24/ Assist Outpatient PT
[2019-01-05 16:00] VITALS: BP 112/66; PULSE 112; RESP 18; TEMP 37.2; O2SAT 96
--- NOTE | 2019-01-05 17:05 | OT.IP.TRT ---
Current Diagnoses Bilateral primary osteoarthritis of knee (01/03/19) Surgery Performed Operation Date: 01/03/19 09:30 Actual Procedures p Total Knee Arthroplasty(Bilateral) - Gary Trevino MD Occupational Therapy Treatment Note M2 OT-IP Current Condition Start: 01/04/19 17:29 Freq: Status: Active Protocol: Document 01/04/19 16:25 PJM (Rec: 01/04/19 17:49 PJM [id number]) Occupational Therapy Current Condition Current Condition Evaluation Date 01/04/19 Treatment Diagnosis decreased mobility, self care S/P B TKA Post Operative Precautions Other Precautions fall risk, orthostatic with P. T. Weight Bearing Status Weight Bearing Status Weight Bear as Tolerated M3 OT- IP Subjective and Pain Start: 01/04/19 17:29 Freq: Status: Active Protocol: Document 01/05/19 14:35 CCC (Rec: 01/05/19 17:05 CCC [id number]) OT- Subjective Occupational Therapy Visit Type Type Treatment Note Visit Start Time 14:35 Visit Stop Time 15:20 Total Visit Minutes 88 Notes Also seen in AM [id number], to session with PT to access mobility needs as pt prior having very low BP. Occupational Therapy Visit Comments Patient Comments Pt states feeling better today especially for the PM session . OT Pain Assessment Pain When Pain Assessed During Mobility Pain Present Pain Present Pain Reported Location Right Knee Intensity 6 Scale Used Numeric (1 - 10) M4 OT- IP ADL's Start: 01/04/19 17:29 Freq: Status: Active Protocol: Document 01/05/19 14:35 CCC (Rec: 01/05/19 17:05 CCC [id number]) OT ADL-Dressing General Eval Lower Body Dressing Ability Total Assistance Assistive Devices Dressing Assistive Devices Long Handled Shoe [place] Boner Sock Aid OT ADL-Toileting Comments OT Toileting Comments Pt still looking for BSC , but most likely to just purchase one for pt prior to going home. Spoke of option of toilet frame, however BSC would probably be best as can be place on the toilet of next to the bed. M5 OT- IP IADL's Start: 01/04/19 17:29 Freq: Status: Active Protocol: Document 01/04/19 16:25 PJM (Rec: 01/04/19 17:49 PJM [id number]) OT-Instrumental Activities of Daily Living Deficits IADL Deficits Identified Deficits Home Safety Awareness Awareness of Need for Assistance at Home Good Awareness Ability to Problem Solve Emergency Able to Problem Solve Situations Medication Management Medication Management No Deficits Identified Money Management Money Management No Deficits Identified Meal Preparation Meal Preparation Caregiver Provides Assist Meal Preparation Comments to assist until pt able Drawing Instructor Drawing Instructor Caregiver Provides Assist Drawing Instructor Comments to assist until pt able M6 OT- IP Functional Cognition Start: 01/04/19 17:29 Freq: Status: Active Protocol: Document 01/05/19 14:35 [facility] (Rec: 01/05/19 17:05 [facility] [id number]) Cognitive Factors Limiting Selfcare Function Cognitive Ability Level of Alertness Alert Patient Orientation Name Age Birthday Month Date Year Day of Week Place Situation Attention Span Ability Capable of Focused Attention Capable of Sustained Attention Ability to Follow Commands Able to Follow One Step Commands Memory Description No Deficits Noted Short Term Impaired Safety Awareness No Deficits Noted Problem Solving Ability No deficits Noted Cognitive Comments Cognitive Assessment Comments At times pt having to recheck with pt for safety needs of hands placement, not sure to place hands on FWW versus armrest to push up from. M7 OT- IP Mobility and Balance Start: 01/04/19 17:29 Freq: Status: Active Protocol: Document 01/05/19 14:35 [facility] (Rec: 01/05/19 17:05 [facility] [id number]) OT- Bed Mobility Assessment Rolling Type of Rolling Roll to Right Level of Assistance Standby Assistance Supine to Sit Supine to Sit Assist Standby Assistance 1 Person Assistance Sit to Supine Sit to Supine Assist Minimal Assistance 1 Person Assistance OT-Transfer Assessment Sit to and From Stand Sit to and from Stand Minimal Assistance 1 Person Assistance Transfers Transfer Ability Minimal Assistance 1 Person Assistance 2 Person Assistance Technique Transfer Destination Chair Transfer Technique Stand Step Pivot Devices Transfer Assistive Devices Gait Belt Front Wheeled Walker Comments Mobility Comments LISANDRO x1 and another for close SBA due to pt;s decreased BP, in the afternoon session, mainly assist to follow with WC. OT- Gait Assessment Comments Gait Ability Comments In AM only transfer only as BP dropped from 151/85 to 86/56. In PM session BP much more stable even after up walking in the hallways 112/66. OT- Balance Assessment Sitting Balance and Reactions Static Sitting Balance Ability Normal Standing Balance and Reactions Static Standing Balance Ability Good M8 OT- IP Objective Assessments Start: 01/04/19 17:29 Freq: Status: Active Protocol: Document 01/04/19 16:25 PJM (Rec: 01/04/19 17:49 PJM [id number]) OT Gross Range of Motion Upper Extremity Range of Motion Assessment Within Functional Limits OT Strength Upper Extremity Strength Assessment Within Functional Limits Hand Drawing Instructor Strength Hand Dominance Right OT- Coordination Assessment Comments Coordination Comments BUE WFL OT-Muscle Tone Assessment Muscle Tone WNL Yes OT Sensation Assessment Comments Summary Comments BUE WNL per pt M9 OT- IP Assessment and Plan Start: 01/04/19 17:29 Freq: Status: Active Protocol: Document 01/05/19 14:35 CCC (Rec: 01/05/19 17:05 CCC [id number]) OT Summary Assessment and Plan Potential Rehabilitation Potential Good Analytic Complexity at Evaluation Low Summary OT Impairments Pain Balance Functional Mobility Grooming Dressing Toileting Bathing Toilet Transfers Shower Transfers Progress Towards Goals Slow Progress due to Pain Slow Progress due to Activity Tolerance Assessment Summary Pt doing much better today and in PM not hypotensive. Looking to do caregiver training with tomorrow for ADL needs. Pending training home with 24/7 assist or short rehab stay. Goals Grooming Goal Independent Dressing Goal Independent Toileting Goal Standby Assistance Bathing Goal Standby Assistance Toilet Transfer Goal Independent Shower Transfer Goal Minimal Assistance Patient/Caregiver Education Goal Demonstrate Post-Op Precautions Demonstrate Energy Conservation and Pacing Caregiver Independent Assisting Patient OT-Other Goals Grooming to be done standing or sitting at sink with good safety awareness. Toileting in bathroom. Days to Meet Goals 5 Frequency of Treatment Frequency Of Treatment Once a Day Treatment Plan OT Treatment Plan ADL Training Functional Mobility Patient/Family Education Discharge Planning Discharge Recommendations OT Discharge Recommendations Home with 24/7 Assist Other Discharge Recommendations vs SNF pending progress here
[2019-01-05 21:10] VITALS: BP 123/76; PULSE 91; RESP 16; TEMP 37.3; O2SAT 96
[2019-01-05] MEDS: SODIUM CHLORIDE 0.9% FLUSH 10 ML IV (21:28)
[2019-01-06 00:35] VITALS: BP 103/69; PULSE 99; RESP 16; TEMP 36.8; O2SAT 96
--- NOTE | 2019-01-06 02:55 | PC.NURSE ---
2300- Pt POD#2 bilat total knee; aquasil drsg in place w/ juve bandage wraps on both knees. Pt moving 1PA to [facility] commode in room; on RA; VSS. Pt denies any pain at this time. 0400- PO Zofran given for nausea. No needs at this time.
[2019-01-06 04:22] VITALS: BP 156/82; PULSE 89; RESP 16; TEMP 36.8; O2SAT 95
[2019-01-06] MEDS: ONDANSETRON 4 MG ODT PO (04:24)
[2019-01-06 07:47] VITALS: O2SAT 97
[2019-01-06 07:50] VITALS: BP 122/80; PULSE 92; RESP 16; TEMP 36.7; O2SAT 97
[2019-01-06] MEDS: ACETAMINOPHEN 325 MG TABLET 975 MG PO ×2 (08:36→13:52)
[2019-01-06] MEDS: SODIUM CHLORIDE 0.9% FLUSH 10 ML IV (08:36)
[2019-01-06] MEDS: ASPIRIN EC 81 MG TABLET PO (08:36)
[2019-01-06] MEDS: MELOXICAM 7.5 MG TABLET 15 MG PO (08:37)
--- NOTE | 2019-01-06 09:30 | PT.IPTN ---
Current Diagnoses Bilateral primary osteoarthritis of knee (01/03/19) Surgery Performed Operation Date: 01/03/19 09:30 Actual Procedures p Total Knee Arthroplasty(Bilateral) - Gary Trevino MD Physical Therapy Treatment Note M2 PT-IP Current Condition Start: 01/03/19 16:15 Freq: NEEDED Status: Active Protocol: Document 01/03/19 15:35 AB (Rec: 01/03/19 16:33 AB [id number]) Physical Therapy Current Condition Current Condition Evaluation Date 01/03/19 Treatment Diagnosis s/p bilateral TKA; difficulty in walking Onset Date 01/03/19 Weight Bearing Status Weight Bearing Status Weight Bear as Tolerated M3 PT-IP Subjective Start: 01/03/19 16:15 Freq: NEEDED Status: Active Protocol: Document 01/06/19 09:35 GGD (Rec: 01/06/19 11:39 GGD [email or web address]) Subjective Physical Therapy Visit Type Type Treatment Note Visit Start Time 09:05 Visit Stop Time 09:35 Total Visit Minutes 30 Number of [employer]AK[employer]ACH[employer]IC Visits 1 Physical Therapy Visit Comments Patient Comments Pt is willing to work with therapy. Therapy Pain Assessment Pain When Pain Assessed At Rest Pain Present Pain Present Pain Reported Location Right Knee Intensity 4 Scale Used Numeric (1 - 10) Pain Management Techniques Apply Cold Re-positioning Timing of Activity with Medications M4 PT-IP Mobility and Gait Start: 01/03/19 16:15 Freq: NEEDED Status: Active Protocol: Document 01/06/19 09:35 GGD (Rec: 01/06/19 11:39 GGD [email or web address]) PT-Bed Mobility Assessment Sit to Supine Sit to Supine Minimal Assistance 1 Person Assistance PT-Transfer Assessment Sit to and From Stand Sit to and from Stand Contact Guard Assistance 1 Person Assistance Use of Upper Extremities Equipment Transfer Assistive Device Gait Belt Front Wheeled Walker Orthotic/Prosthetic Devices or Brace: No Transfers Transfer Destination Bed Transfer Ability Level of Assist Minimal Assistance Gait Assessment Gait Gait Assistance Required: Contact Guard Assist Distance (Feet) 60 Able to Maintain Weight Bearing Status Yes During Gait Assistive Devices Assistive Device Gait Belt Front Wheeled Walker Orthotic/Prosthetic Devices or Brace: No Gait Deviations General Gait Pattern Antalgic Wide Based Gait Factors Limiting Gait Function Factors Limiting Gait Function Decreased Activity Tolerance Decreased Strength Limited Range of Motion Pain Poor Balance Stair Climbing Assessment Evaluation Level of Assist On Stairs Minimal Assistance 1 Person Assistance Devices Stair Climbing Assistive Devices Left Railing Technique/Endurance Stair Climbing Direction Ascend and Descend Stair Climbing Technique Step to Step Number of Steps Climbed 3 Query Text: Stair Climbing Set # Repetitions (reps) 1 Comments Stair Climbing Comments hand hold assist with min A. M5 PT-IP Objective Assessments Start: 01/03/19 16:15 Freq: NEEDED Status: Active Protocol: Document 01/03/19 15:35 AB (Rec: 01/03/19 16:33 AB [id number]) Orientation Orientation/Cognition Level of Alertness Alert Orientation Name Place Situation Language Function Ability No Deficits Noted Safety Awareness Understands Safety Issues Memory Description Short Term Impaired Gross Range of Motion Lower Extremity ROM Assessment Bilaterally Impaired Impairments R knee flexion: ~ 70 deg L knee flexion: ~ 90 deg Strength Lower Extremity Strength Assessment Bilaterally Impaired Knee 3+/5 Coordination Assessment Gross Coordination Gross Coordination WNL Sensation Assessment Sensation Gross Sensation Right LE Impaired Left LE Impaired Light Touch Impaired Proprioception (Position) Impaired Comments Sensation Comments decrease sensation on BLE Muscle Tone Muscle Tone WNL Yes M6 PT-IP Treatment Start: 01/03/19 16:15 Freq: NEEDED Status: Active Protocol: Document 01/04/19 14:40 AB (Rec: 01/04/19 16:46 AB [id number]) Physical Therapy Treatment Education Education Provided Safety M7 PT-IP Assessment and Plan Start: 01/03/19 16:15 Freq: NEEDED Status: Active Protocol: Document 01/06/19 09:35 GGD (Rec: 01/06/19 11:39 GGD [email or web address]) PT Summary Assessment and Plan Summary Assessment Summary Pt is improving with mobility. She need min a with LE for bed mobility. She was safe and stable with stair mobility and gait. She is safe for home D/C when medically stable . Frequency of Treatment Frequency Of Treatment Twice a Day Treatment Plan Physical Therapy Treatment Plan Bed Mobility Training Transfer Training Gait Training Therapeutic Exercise Balance Retraining Post Op Education Discharge Planning Hot or Cold Pack Neuromuscular Re-ed Coordination Retraining Manual Therapy Recommendations To Nursing Amount of Assist Needed 1 Person Assist Discharge Recommendations PT Discharge Recommendations Home with 04/04 Assist Outpatient PT
--- NOTE | 2019-01-06 10:33 | PM.DS.1 ---
History of Present Illness Date Patient Seen: 01/06/19 Time Patient Seen: 10:00 Chief complaint: [id number] Bilateral Total Knee Arthroplasty Narrative: 68 year old female who is POD#3 s/p bilateral total knee arthroplasty with Dr. Trevino. Discharge Providers Date of admission: 01/03/19 07:27 Discharge Date: 01/06/19 Consults: 01/03/19 14:12 Consult to Discharge Planning Routine Comment: Consult to Physical Therapy Evaluate & Treat Comment: Physician Instructions: postop TKA protocol Consult to Respiratory Therapy Evaluate & Treat Comment: Physician Instructions: Evaluate and treat 01/04/19 08:40 Consult to Occupational Therapy Evaluate & Treat Comment: Physician Instructions: Evaluate and treat Discharge provider: Soniya Lynn PA-C Summary Discharge Diagnosis: s/p bilateral total knee arthroplasty Hospital Course: The patient presented for total knee arthroplasty after failure of conservative treatment. The nature of the procedure including the risks and benefits, alternatives, postoperative course and expected outcome were discussed and all questions answered. Consent was obtained. Operative site confirmed and marked. After obtaining informed consent patient was taken to the operating room where she underwent bilateral knee replacement. She has been progressing well post operatively. Her pain is well managed with oxycodone and Tylenol. She has mobilized with PT and OT and was able to climb steps. She has been voiding though denies bowel movement. Bowel regimen given today and patient passing gas. Her will be providing 24 hour assistance at home. All of her post operative medications were prescribed at her pre op visit and she has good supply at home. Status at Discharge Cognitive/behavioral status at discharge: oriented Functional status at discharge: uses cane/walker Overall status at discharge: patient is progressing back to baseline Exam Vital Signs (past 8 hours): - 01/06/19 04:22 01/06/19 07:47 01/06/19 07:50 Temperature 98.2 F 98.1 F Pulse Rate 89 92 H Respiratory Rate 16 16 Blood Pressure 156/82 H 122/80 Pulse Oximetry 95 97 97 Oxygen Delivery Method Room Air Oxygen Flow Rate 0 Objective Labs Result Diagrams: 01/04/19 05:29 Discharge Plan Discharge Plan Patient Disposition: Home Discharge comment: Discharge to home after OT today Discharge Med Rec/Prescriptions Prescriptions: New acetaminophen 325 mg Tablet 975 mg PO TID Qty: 60 RF: 0 polyethylene glycol 3350 17 gram Powder In Packet 17 gm PO DAILY PRN (Reason: Constipation) Qty: 60 RF: 0 aspirin 81 mg Tablet,Delayed Release (Dr/Ec) 81 mg PO BID Qty: 60 RF: 0 meloxicam [Mobic] 7.5 mg Tablet 15 mg PO 0800 Qty: 60 RF: 0 docusate sodium 100 mg Capsule 100 mg PO BID Qty: 60 RF: 0 oxycodone 5 mg Tablet 5 mg PO Q3HR PRN (Reason: Pain, Moderate (4-6)) Qty: 1 RF: 0 Discontinued naproxen sodium [Aleve] 220 mg Capsule 220 mg PO BID RF: 0 Follow up/Referrals: Gary Trevino MD [Physician] - Provider Discharge Instructions Diet: Diet as Tolerated and Regular Activity: Weight bear as tolerated. Use walker/cane for support. Cold/Heat Therapy: Ice packs as needed. Other treatments: Follow [employer] guide. Skin/Wound/Dressing Care Dressing: Leave dressing in place, will be removed at 2 week post operative visit. Visit Report/Discharge Packet Instructions: DI for Knee Replacement Discharge Data Attending Provider: Gary Trevino Admit Date/Time: 01/03/19 07:27 Quality VTE Deep Vein Thrombosis/Pulmonary Embolism Present on Admission: No
--- NOTE | 2019-01-06 11:09 | CM.DPC ---
DCP Cont: Met briefly with patient and her , since she is being discharged today. She resides on [address] [place] with her spouse. Her spouse does have a job in which he travels, but he will be taking time off work to help support her recovery. She has had bilateral knee surgery. Patient in good spirits. She has already worked with physical therapy on stair training, in which she passed. She stated that she will be staying on the main level of her house, in which she has 5 stairs. [facility] attempt to find a bedside commode, in which he stated that they did not have. He is planning on purchasing one, and then, donating it to one of the groups, such as [facility]. Patient stated that she has a horse that she boards, that is approximately 28 year old. She has been active, as well as kayaking with her . P: Went ahead and had patient sign updated IMM form. She anticipates working with occupational therapy before she goes home today. Constanza Sarabia RN/Director Of Grants
[2019-01-06] MEDS: DOCUSATE 100 MG CAPSULE PO (13:52)
== END 2019-01-06 14:00 | disposition home or self-care (01) | DRG 462 ==
PROVIDERS: Admitting Provider Orthopaedic Surgery; Referring Provider Orthopaedic Surgery; Visit Provider Orthopaedic Surgery
PROC: 0SRC0JZ Replacement of Right Knee Joint with Synthetic Substitute, Open Approach (ICD-10-PCS; CPT 27447; principal; 2019-01-03 09:30)
DX: M17.0 Bilateral primary osteoarthritis of knee (principal); E66.9 Obesity, unspecified; Z68.34 Body mass index [BMI] 34.0-34.9, adult; I95.9 Hypotension, unspecified
CPT/HCPCS: 36415; 73560; 85014; 85018; 94760; 97116; 97162; 97165; 97530; 97535; C1776; C9290; J0690; J2250; J2405; J2704; J3010